=== PATIENT | female | born 1980 | race American Indian/Alaskan Native ===

== ENCOUNTER 2020-01-03 14:40 | Emergency (ER) | payer OTHER ==
[~2020-01-03] VITALS: Ht 170.2 cm; Wt 68.0 kg
[~2020-01-03 14:40] MED LIST: ACEPHEN325 MG PO
[2020-01-03] MEDS ORDERED: TESSALON PERLE100 MG PO (16:03)
[2020-01-03] MEDS ORDERED: CODEINE-GUAIFE120 ML PO (16:03)
== END 2020-01-03 16:13 | disposition home or self-care (01) ==
LOC: ED 14:40
DX: J06.9 Acute upper respiratory infection, unspecified (principal)
CPT/HCPCS: 99283

== ENCOUNTER 2020-12-06 11:16 | Emergency (ER) | payer OTHER ==
[~2020-12-06] VITALS: Ht 170.2 cm; Wt 68.0 kg
[~2020-12-06 11:16] MED LIST changes: +CODEINE-GUAIFE120 ML PO; +TESSALON PERLE100 MG PO
[2020-12-06] MEDS ORDERED: MOBIC7.5 MG PO (13:03)
[2020-12-06] MEDS ORDERED: CYCLOBENZAPRINE10 MG PO (13:03)
== END 2020-12-06 13:15 | disposition home or self-care (01) ==
LOC: ED 11:16
DX: M62.838 Other muscle spasm (principal); Z88.8 Allergy status to other drugs, medicaments and biological substances
CPT/HCPCS: 70450; 72125; 84703; 99284-25

== ENCOUNTER → 2022-01-07 | Emergency (ER) | payer OTHER ==
[~2022-01-07] VITALS: Ht 170.2 cm; Wt 68.0 kg
[~2022-01-07] MED LIST changes: +CYCLOBENZAPRINE10 MG PO; +HYDROCODON-ACE1 EAC8 PO; +MOBIC7.5 MG PO; +ONDANSETRON ODT4 MG SL
--- OUTSIDE RECORDS SUMMARY | 2022-01-07 16:28 | XMS ---
PreManage Notification: ANGELA DESIR [employer] Poisoner Events 1 event(s) in the past 18 months Most recent security events: Elopement at [facility] 09/27/2021 14:46 - Other Details: PATIENT LWBS CRITERIA MET - ED - Positive COVID-19 Lab Result - [facility] PROVIDERS There are no care providers on record at this time. Renee has no Care Guidelines for this patient. [facility] ([address] [facility]: Visits indicate total known visits. ED/C VISIT TRACKING (12 MO.) 01/07/2022 16:25 [facility] OR TYPE: Emergency COMPLAINT: - LOWER ABDOMINAL PAIN 09/27/2021 14:46 [facility]ae[facility] OR TYPE: Emergency COMPLAINT: - R FOOT PAIN/NO INJURY INPATIENT VISIT TRACKING (12 MO.) No inpatient visits to display in this time frame [email or web address]
== END ==
LOC: ED 16:24
DX: N83.202 Unspecified ovarian cyst, left side (principal); Z88.8 Allergy status to other drugs, medicaments and biological substances
CPT/HCPCS: 36415; 76830; 76856; 80053; 81001; 83690; 84703; 85025; J1170; J1885; J2405; J7030

== ENCOUNTER 2022-06-15 19:18 | Emergency (ER) | payer OTHER ==
[~2022-06-15] VITALS: Ht 170.2 cm; Wt 78.0 kg
[2022-06-15] MEDS ORDERED: HYDROCODON-ACE1 EA10 PO (21:26)
== END 2022-06-15 21:57 | disposition home or self-care (01) ==
LOC: ED 19:18
DX: S62.617A Displaced fracture of proximal phalanx of left little finger, initial encounter for closed fracture (principal); W22.8XXA Striking against or struck by other objects, initial encounter; Z88.8 Allergy status to other drugs, medicaments and biological substances
CPT/HCPCS: 29130; 73140; 99283-25; A9270

== ENCOUNTER 2022-07-22 10:52 | Emergency (ER) | payer OTHER ==
[~2022-07-22] VITALS: Ht 170.2 cm; Wt 75.7 kg
[~2022-07-22 10:52] MED LIST changes: +HYDROCODON-ACE1 EA10 PO
[2022-07-22] MEDS ORDERED: HYDROCODON-ACE1 EA11 PO (14:47)
== END 2022-07-22 15:04 | disposition home or self-care (01) ==
LOC: ED 10:52
DX: S22.42XA Multiple fractures of ribs, left side, initial encounter for closed fracture (principal); S92.511A Displaced fracture of proximal phalanx of right lesser toe(s), initial encounter for closed fracture; V49.9XXA Car occupant (driver) (passenger) injured in unspecified traffic accident, initial encounter; Z88.8 Allergy status to other drugs, medicaments and biological substances; Z79.891 Long term (current) use of opiate analgesic
CPT/HCPCS: 36415; 70450; 71260; 72125; 73030; 73630; 80053; 83605; 84702; 85025; 96361; 96375; 96376; 99284-25; A9270; G0480; J1170; J2405; J7121; Q9967